=== PATIENT | female | born 1975 | race Caucasian/White ===

== ENCOUNTER 2016-08-28 00:12 | Emergency (ER) | payer SELFPAY ==
[~2016-08-28] VITALS: Ht 149.9 cm; Wt 64.5 kg
[~2016-08-28 00:12] MED LIST: NOCURR
[2016-08-28] MEDS ORDERED: HYDROCODONE/ACETAMINOPHEN 5-325 MG TABLET PO ONE (02:00)
[2016-08-28 03:28] VITALS: BP 119/80
== END 2016-08-28 03:38 | disposition home or self-care (01) ==
LOC: EMS 00:13
DX: K02.9 Dental caries, unspecified (principal); Z88.1 Allergy status to other antibiotic agents
CPT/HCPCS: 99282